=== PATIENT | male | born 1995 | race Hispanic/Latino ===

== ENCOUNTER 2017-09-16 16:26 | Emergency (ER) | payer BC, SELFPAY ==
--- NOTE | 2017-09-16 19:01 | EDPHYS ---
Physician Documentation [facility] Name: Elliot Glynn Jr Age: 21 yrs Sex: Male : 1995 Arrival Date: 09/16/2017 Time: 16:31 Bed 11 Private MD: ED Physician Pepe Tim HPI: 09/16 18:59 This 21 yrs old Male presents to ER via Ambulatory with complaints of Sore snw Throat, Congestion. 18:59 The patient presents with sore throat, dysphagia. The patient describes throat pain as snw raw, scratchy. Onset: The symptoms/episode began/occurred suddenly, 3 day(s) ago, and became worse. Severity of symptoms: At their worst the symptoms were moderate. Associated signs and symptoms: Pertinent positives: cough, flu-like symptoms, Sore throat. The patient has not experienced similar symptoms in the past. The patient has not recently seen a physician. Historical: - Allergies: 16:32 No Known Allergies; hj - Home Meds: 16:32 None [Active]; hj - PMHx: 16:32 None; hj - PSHx: 16:32 None; hj - Immunization history:: Adult Immunizations unknown. - Social history:: Smoking status: Patient/guardian denies using tobacco, Patient/guardian denies using alcohol. ROS: 18:58 Constitutional: Negative for fever, chills, and weight loss, Eyes: Negative for injury, snw pain, redness, and discharge, Neck: Negative for injury, pain, and swelling, Cardiovascular: Negative for chest pain, palpitations, and edema, Respiratory: Negative for shortness of breath, cough, wheezing, and pleuritic chest pain, Abdomen/GI: Negative for abdominal pain, nausea, vomiting, diarrhea, and constipation, Back: Negative for injury and pain, : Negative for injury, bleeding, discharge, and swelling, MS/Extremity: Negative for injury and deformity, Skin: Negative for injury, rash, and discoloration, Neuro: Negative for headache, weakness, numbness, tingling, and seizure. 18:58 Respiratory: Negative for shortness of breath, wheezing, and pleuritic chest pain, positive for cough 18:58 ENT: Positive for sore throat. Exam: 18:57 Constitutional: This is a well developed, well nourished patient who is awake, alert, snw and in no acute distress. Head/Face: Normocephalic, atraumatic. Eyes: Pupils equal round and reactive to light, extra-ocular motions intact. Lids and lashes normal. Conjunctiva and sclera are non-icteric and not injected. Cornea within normal limits. Periorbital areas with no swelling, redness, or edema. Neck: Trachea midline, no thyromegaly or masses palpated, and no cervical lymphadenopathy. Supple, full range of motion without nuchal rigidity, or vertebral point tenderness. No Meningismus. Chest/axilla: Normal chest wall appearance and motion. Nontender with no deformity. No lesions are appreciated. Cardiovascular: Regular rate and rhythm with a normal S1 and S2. No gallops, murmurs, or rubs. Normal PMI, no JVD. No pulse deficits. Respiratory: Lungs have equal breath sounds bilaterally, clear to auscultation and percussion. No rales, rhonchi or wheezes noted. No increased work of breathing, no retractions or nasal flaring. Abdomen/GI: Soft, non-tender, with normal bowel sounds. No distension or tympany. No guarding or rebound. No evidence of tenderness throughout. Back: No spinal tenderness. No costovertebral tenderness. Full range of motion. Skin: Warm, dry with normal turgor. Normal color with no rashes, no lesions, and no evidence of cellulitis. MS/ Extremity: Pulses equal, no cyanosis. Neurovascular intact. Full, normal range of motion. Neuro: Awake and alert, GCS 15, oriented to person, place, time, and situation. Cranial nerves II-XII grossly intact. Motor strength 5/5 in all extremities. Sensory grossly intact. Cerebellar exam normal. Normal gait. 18:57 ENT: External ear(s): are unremarkable, Ear canal(s): are normal, TM's: are normal, Nose: is normal, Mouth: is normal, Posterior pharynx: erythema, that is marked, Voice: is hoarse. Vital Signs: 16:33 BP 138 / 87; Pulse 94; Resp 18; Temp 98.1(TE); Pulse Ox 97% on R/A; Weight 115.67 kg; hj Height 5 ft. 7 in. (170.18 cm); Pain 10/10; 19:15 BP 132 / 85; Pulse 90; Resp 18; Pulse Ox 100% on R/A; hj 16:33 Body Mass Index 39.94 (115.67 kg, 170.18 cm) MDM: 18:17 Patient medically screened. snw 19:08 Data reviewed: vital signs, nurses notes. Data interpreted: Pulse oximetry: on room air snw is 97 %. Interpretation: normal. Counseling: I had a detailed discussion with the patient and/or guardian regarding: the historical points, exam findings, and any diagnostic results supporting the discharge/admit diagnosis, the presence of at least one elevated blood pressure reading (>120/80) during this emergency department visit, lab results, the need for outpatient follow up, for definitive care, to return to the emergency department if symptoms worsen or persist or if there are any questions or concerns that arise at home. Special discussion: I have referred the patient to see his PCP for further evaluation of high blood pressure. Based on the history and exam findings, there is no indication for further emergent testing or inpatient evaluation. I discussed with the patient/guardian the need to see the primary care provider for further evaluation of the symptoms. 09/16 16:35 Order name: Flu 09/16 16:35 Order name: Strep 09/16 17:27 Order name: Group A Streptococcus Rapid Sc; Complete Time: 18:00 EDMS 09/16 17:36 Order name: Influenza Screen (A ; Complete Time: 18:00 EDMS Administered Medications: 18:35 Drug: Decadron 8 mg Route: PO; hj 18:44 Follow up: Response: No adverse reaction hj 18:35 CANCELLED (other intervention used): Augmentin 875 mg PO once snw 18:35 Drug: Zithromax 500 mg Route: PO; hj 18:45 Follow up: Response: No adverse reaction Disposition: 09/16/17 19:00 Discharged to Home. Impression: Acute laryngopharyngitis. - Condition is Stable. - Discharge Instructions: Laryngitis, Pharyngitis. - Prescriptions for Tessalon Perles 100 mg Oral Capsule - take 1 capsule by ORAL route every 8 hours As needed; 15 capsule. Zithromax 500 mg Oral Tablet - take 1 tablet by ORAL route once daily for 5 days; 5 tablet. - Work release form, Medication Reconciliation Form, Thank You Letter, Antibiotic Education, Prescription Opioid Use form. - Follow up: Private Physician; When: 2 - 3 days; Reason: Recheck today's complaints, Continuance of care, Re-evaluation by your physician. Follow up: Emergency Department; When: As needed; Reason: Worsening of condition. Addendum: 10/31/2017 07:01 Co-signature as Attending Physician, Pepe Tim MD. m a2 Signatures: Dispatcher [employer] EDAle Olivares, KENNEDY-C JACKSPOOLER-Csnw Ney Cobos RN RN Pepe Douglas MD MD ma2 Corrections: (The following items were deleted from the chart) 09/16 18:35 18:35 Augmentin 875 mg PO once ordered. snw snw
--- NOTE | 2017-09-16 19:01 | ER ---
Nurse's Notes [facility] Name: Elliot Glynn Jr Age: 21 yrs Sex: Male : 1995 Arrival Date: 09/16/2017 Time: 16:31 Bed 11 Private MD: Diagnosis: Acute laryngopharyngitis Presentation: 09/16 16:31 Presenting complaint: Patient states: cough, runny nose, sore throat started 2 1/2 days hj ago; reports fever and chills;. Transition of care: patient was not received from another setting of care. Onset of symptoms was September 16, 2017. Care prior to arrival: None. 16:31 Method Of Arrival: Ambulatory hj 16:31 Acuity: REMINGTON 4 hj Triage Assessment: 16:32 General: Appears in no apparent distress. uncomfortable, Behavior is calm, cooperative, hj appropriate for age. Pain: Complains of pain in throat. EENT: Reports pain when swallowing. 16:32 Neuro: Level of Consciousness is awake, alert, obeys commands. Cardiovascular: hj Capillary refill < 3 seconds Patient's skin is warm and dry. Respiratory: Airway is patent Respiratory effort is even, unlabored, Respiratory pattern is regular, symmetrical. GI: No signs and/or symptoms were reported involving the gastrointestinal system. : No signs and/or symptoms were reported regarding the genitourinary system. Derm: No signs and/or symptoms reported regarding the dermatologic system. Musculoskeletal: No signs and/or symptoms reported regarding the musculoskeletal system. Historical: - Allergies: 16:32 No Known Allergies; hj - Home Meds: 16:32 None [Active]; hj - PMHx: 16:32 None; hj - PSHx: 16:32 None; hj - Immunization history:: Adult Immunizations unknown. - Social history:: Smoking status: Patient/guardian denies using tobacco, Patient/guardian denies using alcohol. Screenin:17 Abuse screen: Denies threats or abuse. Denies injuries from another. Nutritional hj screening: No deficits noted. Tuberculosis screening: No symptoms or risk factors identified. Fall Risk None identified. Assessment: 16:33 Respiratory: Airway is patent Respiratory effort is even, unlabored, Respiratory hj pattern is regular, symmetrical, Breath sounds are clear. 16:33 EENT: Throat has enlarged tonsils. hj 18:18 Reassessment: Patient and/or family updated on plan of care and expected duration. Pain hj level reassessed. Patient is alert, oriented x 3, equal unlabored respirations, skin warm/dry/pink. awaiting POC:. Vital Signs: 16:33 BP 138 / 87; Pulse 94; Resp 18; Temp 98.1(TE); Pulse Ox 97% on R/A; Weight 115.67 kg; hj Height 5 ft. 7 in. (170.18 cm); Pain 10/10; 19:15 BP 132 / 85; Pulse 90; Resp 18; Pulse Ox 100% on R/A; hj 16:33 Body Mass Index 39.94 (115.67 kg, 170.18 cm) hj ED Course: 16:31 Patient arrived in ED. mr 16:32 Triage completed. hj 16:33 Arm band placed on left wrist. hj 18:00 Ale Madrid FNP-C is PHCP. snw 18:00 Pepe Tim MD is Attending Physician. snw 18:09 Ney Cobos, GUERO is Primary Nurse. hj 18:17 Patient has correct armband on for positive identification. Bed in low position. Call hj light in reach. 19:14 No provider procedures requiring assistance completed. Patient did not have IV access hj during this emergency room visit. Administered Medications: 18:35 Drug: Decadron 8 mg Route: PO; hj 18:44 Follow up: Response: No adverse reaction hj 18:35 CANCELLED (other intervention used): Augmentin 875 mg PO once snw 18:35 Drug: Zithromax 500 mg Route: PO; hj 18:45 Follow up: Response: No adverse reaction hj Outcome: 19:00 Discharge ordered by . snw 19:15 Discharged to home ambulatory. hj 19:15 Condition: stable 19:15 Discharge instructions given to patient, Instructed on discharge instructions, follow up and referral plans. medication usage, Demonstrated understanding of instructions, follow-up care, medications, Prescriptions given X 2. 19:15 Patient left the ED. hj Signatures: Ale Madrid FNP-C MCAT TUTOR-Linh Roy mr Ney Cobos, RN RN hj Corrections: (The following items were deleted from the chart) 16:36 16:33 Pulse 94bpm; Resp 18bpm; Pulse Ox 97% RA; Temp 98.1F Temporal; 115.67 kg; Height hj 5 ft. 7 in.; BMI: 39.9; Pain 04/11; hj
[2017-09-16] MEDS ORDERED: DEXAMETHASONE 4 MG TAB ONE (19:02)
[2017-09-16] MEDS ORDERED: AZITHROMYCIN 250 MG TAB ONE (19:02)
== END 2017-09-16 19:15 | disposition home or self-care (01) ==
LOC: ER 16:26
DX: J06.0 Acute laryngopharyngitis (principal)
CPT/HCPCS: 87070; 87081; 87804; 99283

== ENCOUNTER 2018-07-15 20:27 | Emergency (ER) | payer SELFPAY ==
--- NOTE | 2018-07-15 21:43 | RAD REPORT ---
EXAM DESCRIPTION: RAD - Chest Pa And Lat (2 Views) - 07/15/2018 9:37 pm CLINICAL HISTORY: COUGH Chest pain. COMPARISON: No comparisons FINDINGS: The lungs are clear. The heart is normal in size. No displaced fractures. IMPRESSION: No acute or concerning finding suspected.
--- NOTE | 2018-07-15 22:50 | EDPHYS ---
Physician Documentation [facility] Name: Elliot Glynn Jr Age: 22 yrs Sex: Male : 1995 Arrival Date: 07/15/2018 Time: 20:29 Bed 16 Private MD: ED Physician Panchito Robledo HPI: 07/15 22:46 This 22 yrs old Male presents to ER via Ambulatory with complaints of snw Productive Cough, Painful Cough. 22:46 The patient or guardian reports cough, described as moderate. Onset: The snw symptoms/episode began/occurred 3 week(s) ago, and became persistent. Severity of symptoms: At their worst the symptoms were moderate. Associated signs and symptoms: Pertinent positives: smokes/vapes, lives in apt with Brother who also smokes, Pertinent negatives: chest pain, fever, nausea, vomiting, weight loss, night sweats, recent travel.. The patient has experienced a previous episode. It is unknown whether or not the patient has recently seen a physician. Historical: - Allergies: 21:04 No Known Allergies; aj1 - Home Meds: 21:04 None [Active]; aj1 - PMHx: 21:04 None; aj1 - PSHx: 21:04 None; aj1 - Immunization history:: Flu vaccine is not up to date. - Social history:: Smoking status: Patient uses tobacco products, denies chronic smoking, but will smoke occasionally. - Ebola Screening: : Patient denies travel to an Ebola-affected area in the 21 days before illness onset. ROS: 22:45 Constitutional: Negative for fever, chills, and weight loss, Eyes: Negative for injury, snw pain, redness, and discharge, ENT: Negative for injury, pain, and discharge, Neck: Negative for injury, pain, and swelling, Cardiovascular: Negative for chest pain, palpitations, and edema, Abdomen/GI: Negative for abdominal pain, nausea, vomiting, diarrhea, and constipation, Back: Negative for injury and pain, : Negative for injury, bleeding, discharge, and swelling, MS/Extremity: Negative for injury and deformity, Skin: Negative for injury, rash, and discoloration, Neuro: Negative for headache, weakness, numbness, tingling, and seizure. 22:45 Respiratory: Positive for cough, with no reported sputum. Exam: 22:45 Constitutional: This is a well developed, well nourished patient who is awake, alert, snw and in no acute distress. Head/Face: Normocephalic, atraumatic. Eyes: Pupils equal round and reactive to light, extra-ocular motions intact. Lids and lashes normal. Conjunctiva and sclera are non-icteric and not injected. Cornea within normal limits. Periorbital areas with no swelling, redness, or edema. Neck: Trachea midline, no thyromegaly or masses palpated, and no cervical lymphadenopathy. Supple, full range of motion without nuchal rigidity, or vertebral point tenderness. No Meningismus. Chest/axilla: Normal chest wall appearance and motion. Nontender with no deformity. No lesions are appreciated. Cardiovascular: Regular rate and rhythm with a normal S1 and S2. No gallops, murmurs, or rubs. Normal PMI, no JVD. No pulse deficits. Abdomen/GI: Soft, non-tender, with normal bowel sounds. No distension or tympany. No guarding or rebound. No evidence of tenderness throughout. Back: No spinal tenderness. No costovertebral tenderness. Full range of motion. Skin: Warm, dry with normal turgor. Normal color with no rashes, no lesions, and no evidence of cellulitis. MS/ Extremity: Pulses equal, no cyanosis. Neurovascular intact. Full, normal range of motion. Neuro: Awake and alert, GCS 15, oriented to person, place, time, and situation. Cranial nerves II-XII grossly intact. Motor strength 5/5 in all extremities. Sensory grossly intact. Cerebellar exam normal. Normal gait. 22:45 ENT: TM's: erythema, that is mild, bilaterally, Nose: is normal, Mouth: is normal, Posterior pharynx: erythema, that is moderate, Voice: is normal. 22:45 Respiratory: the patient does not display signs of respiratory distress, Respirations: normal, Breath sounds: bronchial sounds, bronchitic cough. Vital Signs: 21:04 BP 133 / 89; Pulse 92; Resp 20; Temp 97.8; Pulse Ox 99% on R/A; Weight 124.74 kg (R); aj1 Height 5 ft. 7 in. (170.18 cm) (R); Pain 7/10; 23:13 BP 126 / 83; Pulse 89; Resp 18; Pulse Ox 99% on R/A; Pain 0/10; aa1 21:04 Body Mass Index 43.07 (124.74 kg, 170.18 cm) aj1 MDM: 22:23 Patient medically screened. snw 22:50 Data reviewed: vital signs, nurses notes. Data interpreted: Pulse oximetry: on room air snw is 99 %. Interpretation: normal. Counseling: I had a detailed discussion with the patient and/or guardian regarding: the historical points, exam findings, and any diagnostic results supporting the discharge/admit diagnosis, radiology results, to return to the emergency department if symptoms worsen or persist or if there are any questions or concerns that arise at home, smoking cessation. Special discussion: I have referred the patient to see his PCP for further evaluation of high blood pressure. Based on the history and exam findings, there is no indication for further emergent testing or inpatient evaluation. I discussed with the patient/guardian the need to see the primary care provider for further evaluation of the symptoms. 07/15 20:37 Order name: Chest Pa And Lat (2 Views) XRAY; Complete Time: 21:44 snw Administered Medications: 22:55 Drug: predniSONE 40 mg Route: PO; aa1 23:13 Follow up: Response: No adverse reaction; Medication administered at discharge. aa1 22:55 Drug: Pepcid 20 mg Route: PO; aa1 23:13 Follow up: Response: No adverse reaction; Medication administered at discharge. aa1 23:13 Follow up: Response: No adverse reaction; Medication administered at discharge. aa1 22:55 Drug: Albuterol 2.5 mg Route: Inhalation; aa1 Disposition: 07/16 01:26 Co-signature as Attending Physician, Panchito Robledo MD. rn Disposition: 07/15/18 22:49 Discharged to Home. Impression: Bronchitis, not specified as acute or chronic. - Condition is Stable. - Discharge Instructions: Acute Bronchitis, Adult, Hypertension, How to Use an Inhaler, Cool Mist Vaporizer. - Prescriptions for Tessalon Perles 100 mg Oral Capsule - take 1 capsule by ORAL route every 8 hours As needed; 15 capsule. Prednisone 20 mg Oral Tablet - take 2 tablet by ORAL route once daily for 5 days; 10 tablet. Albuterol Sulfate 90 mcg/actuation - inhale 1-2 puff by INHALATION route every 4-6 hours; 1 Inhaler. - Work release form, Medication Reconciliation Form, Thank You Letter, Antibiotic Education, Prescription Opioid Use form. - Follow up: Private Physician; When: 2 - 3 days; Reason: Recheck today's complaints, Continuance of care, Re-evaluation by your physician. Follow up: Emergency Department; When: As needed; Reason: Worsening of condition. Signatures: Dispatcher [employer] EDMS Irina Colindres RN RN aj1 Sarah Lake RN RN aa1 Ale Madrid, OTOLARYNGOLOGY TEACHER-C OTOLARYNGOLOGY TEACHER-Csnw Panchito Robledo MD MD rn integrity: (The following items were deleted from the chart) 07/15 23:14 22:49 07/15/2018 22:49 Discharged to Home. Impression: Bronchitis, not specified as aa1 acute or chronic. Condition is Stable. Forms are Medication Reconciliation Form, Thank You Letter, Antibiotic Education, Prescription Opioid Use. Follow up: Private Physician; When: 2 - 3 days; Reason: Recheck today's complaints, Continuance of care, Re-evaluation by your physician. Follow up: Emergency Department; When: As needed; Reason: Worsening of condition. snw
--- NOTE | 2018-07-15 22:50 | ER ---
Nurse's Notes [facility] Name: Elliot Glynn Jr Age: 22 yrs Sex: Male : 1995 Arrival Date: 07/15/2018 Time: 20:29 Bed 16 Private MD: Diagnosis: Bronchitis, not specified as acute or chronic Presentation: 07/15 21:01 Presenting complaint: Patient states: He has been having "coughing attacks" for the aj1 past few months. Reports shortness of breath and light headedness when he has a coughing fit. Denies fever. Transition of care: patient was not received from another setting of care. Onset of symptoms was 2018. Risk Assessment: Do you want to hurt yourself or someone else? Patient reports no desire to harm self or others. Initial Sepsis Screen: Does the patient meet any 2 criteria? HR > 90 bpm. No. Patient's initial sepsis screen is negative. Does the patient have a suspected source of infection? Yes: Productive cough/pneumonia. Care prior to arrival: None. 21:01 Method Of Arrival: Ambulatory [facility] 21:01 Acuity: REMINGTON 4 aj1 Triage Assessment: 21:04 General: Appears in no apparent distress. comfortable, Behavior is calm, cooperative, aj1 appropriate for age. Pain: Complains of pain in left aspect of posterior pharynx and right aspect of posterior pharynx Pain currently is 7 out of 10 on a pain scale. Neuro: Level of Consciousness is awake, alert, obeys commands. Cardiovascular: Patient's skin is warm and dry. Respiratory: Reports shortness of breath after a coughing fit cough that is productive, Airway is patent Respiratory effort is even, unlabored, Respiratory pattern is regular, symmetrical, Breath sounds are clear bilaterally. Onset: The symptoms/episode began/occurred months ago, the patient reports symptoms have resolved. Historical: - Allergies: 21:04 No Known Allergies; aj1 - Home Meds: 21:04 None [Active]; aj1 - PMHx: 21:04 None; aj1 - PSHx: 21:04 None; aj1 - Immunization history:: Flu vaccine is not up to date. - Social history:: Smoking status: Patient uses tobacco products, denies chronic smoking, but will smoke occasionally. - Ebola Screening: : Patient denies travel to an Ebola-affected area in the 21 days before illness onset. Screenin:40 Abuse screen: Denies threats or abuse. Denies injuries from another. Nutritional aa1 screening: No deficits noted. Tuberculosis screening: No symptoms or risk factors identified. Fall Risk None identified. Assessment: 22:40 General: Appears in no apparent distress. comfortable, Behavior is calm, cooperative, aa1 appropriate for age. Pain: Denies pain. Neuro: Level of Consciousness is awake, alert, obeys commands, Oriented to person, place, time, situation, Moves all extremities. Full function Speech is normal. Cardiovascular: Heart tones S1 S2 present Rhythm is regular. Respiratory: Reports cough that is non-productive, Airway is patent Respiratory effort is even, unlabored, Respiratory pattern is regular, symmetrical, Breath sounds are clear bilaterally. GI: No signs and/or symptoms were reported involving the gastrointestinal system. : No signs and/or symptoms were reported regarding the genitourinary system. EENT: No signs and/or symptoms were reported regarding the EENT system. Derm: Skin is intact, is healthy with good turgor, Skin is pink, warm \\T\\ dry. Musculoskeletal: Circulation, motion, and sensation intact. Capillary refill < 3 seconds. 23:13 Reassessment: Patient appears in no apparent distress at this time. Patient is alert, aa1 oriented x 3, equal unlabored respirations, skin warm/dry/pink. Discussed d/c \\T\\ f/u instructions with pt; denies questions or concerns at this time. Vital Signs: 21:04 BP 133 / 89; Pulse 92; Resp 20; Temp 97.8; Pulse Ox 99% on R/A; Weight 124.74 kg (R); aj1 Height 5 ft. 7 in. (170.18 cm) (R); Pain 7/10; 23:13 BP 126 / 83; Pulse 89; Resp 18; Pulse Ox 99% on R/A; Pain 0/10; aa1 21:04 Body Mass Index 43.07 (124.74 kg, 170.18 cm) aj1 ED Course: 20:29 Patient arrived in ED. es 21:04 Triage completed. aj1 21:04 Arm band placed on Patient placed in waiting room, Patient notified of wait time. aj1 21:36 Ale Madrid FNP-C [facility]. snw 21:36 Panchito Robledo MD is Attending Physician. snw 21:37 Chest Pa And Lat (2 Views) XRAY In Process Unspecified. EDMS 22:40 Patient has correct armband on for positive identification. Bed in low position. Call aa1 light in reach. Pulse ox on. NIBP on. 22:50 Sarah Lake, RN is Primary Nurse. aa1 23:13 No provider procedures requiring assistance completed. Patient did not have IV access aa1 during this emergency room visit. Administered Medications: 22:55 Drug: predniSONE 40 mg Route: PO; aa1 23:13 Follow up: Response: No adverse reaction; Medication administered at discharge. aa1 22:55 Drug: Pepcid 20 mg Route: PO; aa1 23:13 Follow up: Response: No adverse reaction; Medication administered at discharge. aa1 23:13 Follow up: Response: No adverse reaction; Medication administered at discharge. aa1 22:55 Drug: Albuterol 2.5 mg Route: Inhalation; aa1 Outcome: 22:49 Discharge ordered by MD. snw 23:13 Discharged to home ambulatory, with significant other. aa1 23:13 Condition: good 23:13 Discharge instructions given to patient, significant other, Instructed on discharge instructions, follow up and referral plans. medication usage, Demonstrated understanding of instructions, follow-up care, medications, Prescriptions given X 3. 23:14 Patient left the ED. aa1 Signatures: Dispatcher [employer] Irina Roper, RN RN aj1 Sarah Lake, RN RN aa1 Ale Madrid, SUPERVISOR FILM PROCESSING-C SUPERVISOR FILM PROCESSING-Csnw Fanta Edwards
[2018-07-15] MEDS ORDERED: predniSONE 20 MG TAB ONE (23:01)
[2018-07-15] MEDS ORDERED: ALBUTEROL 2.5 MG/3 ML NEB SOL ONE (23:01)
[2018-07-15] MEDS ORDERED: FAMOTIDINE 20 MG TAB ONE (23:02)
== END 2018-07-15 23:14 | disposition home or self-care (01) ==
LOC: ER 20:27
DX: J40 Bronchitis, not specified as acute or chronic (principal); Z72.0 Tobacco use
CPT/HCPCS: 71046; 99284; J7512

== ENCOUNTER 2021-12-06 11:27 | Emergency (ER) | payer SELFPAY ==
--- NOTE | 2021-12-06 12:33 | RAD REPORT ---
EXAM DESCRIPTION: RAD - Elbow Right 3 View - 12/06/2021 12:13 pm CLINICAL HISTORY: PAIN COMPARISON: No comparisons FINDINGS: No bone or joint abnormality is detected.
--- NOTE | 2021-12-06 13:26 | EDPHYS ---
Physician Documentation [facility] Name: Elliot Glynn Jr Age: 26 yrs Sex: Male : 1995 Arrival Date: 12/06/2021 Time: 11:34 Bed 11 Private MD: ED Physician Panchito Robledo HPI: 12/06 13:05 This 26 yrs old Male presents to ER via Ambulatory with complaints of Arm Pain.cp 13:05 The patient or guardian complains of pain, that is acute. The complaints affect the cp right elbow. Context: resulted from weight lifting several days ago. 13:05 Onset: The symptoms/episode began/occurred gradually, and became worse this morning. cp 13:05 Modifying factors: the symptoms are aggravated by flexing and extending right elbow. cp Associated signs and symptoms: Pertinent positives: radiating pain up arm, Pertinent negatives: deformity, numbness, warmth, weakness. Severity of symptoms: in the emergency department the symptoms are unchanged, despite home interventions. Historical: - Allergies: 12:29 No Known Allergies; iw - Home Meds: 12:29 None [Active]; iw - PMHx: 12:29 None; iw - PSHx: 12:29 None; iw - Immunization history:: Adult Immunizations up to date. - Social history:: Smoking status: Reported history of juuling and/or vaping. ROS: 13:10 MS/extremity: Positive for pain, tenderness, of the right elbow, Negative for injury or cp acute deformity, decreased range of motion, paresthesias. 13:10 Constitutional: Negative for fever. cp 13:10 Respiratory: Negative for cough, shortness of breath, wheezing. 13:10 Abdomen/GI: Negative for abdominal pain, nausea, vomiting, and diarrhea. 13:10 Skin: Negative for cellulitis, rash. 13:10 All other systems are negative. Exam: 13:15 Constitutional: The patient appears in no acute distress, alert, awake, cp non-diaphoretic, non-toxic, well developed, well nourished. 13:15 Head/Face: Normocephalic, atraumatic. cp 13:15 Neck: C-spine: vertebral tenderness, is not appreciated, crepitus, is not appreciated, ROM/movement: pain, is not appreciated, limited range of motion, is not appreciated. 13:15 Chest/axilla: Inspection: normal. 13:15 Cardiovascular: Rate: normal. 13:15 Respiratory: the patient does not display signs of respiratory distress, Respirations: normal, no use of accessory muscles, no retractions. 13:15 Musculoskeletal/extremity: Extremities: grossly normal except: noted in the right elbow: pain, tenderness, ROM: limited active range of motion due to pain, in the right elbow, Pulses: noted to be 2+ in the right radial artery, Perfusion: the extremity is normally perfused throughout, the right arm Sensation intact. overlying skin warm, dry, intact. Vital Signs: 12:28 BP 128 / 71; Pulse 88; Resp 20; Temp 96.7; Pulse Ox 98% ; Weight 131.54 kg; Height 5 iw ft. 8 in. (172.72 cm); Pain 5/10; 12:28 Body Mass Index 44.09 (131.54 kg, 172.72 cm) iw MDM: 13:01 Patient medically screened. cp 13:25 Data reviewed: vital signs, nurses notes, radiologic studies, plain films, and as a cp result, I will discharge patient. 12/06 11:48 Order name: XRAY Elbow RIGHT 3 view; Complete Time: 13:24 iw 12/06 13:24 Interpretation: Report reviewed. cp 12/06 13:24 Order name: Sling cp Administered Medications: 12/07 09:24 Not Given (Patient Refused): Ibuprofen 800 mg PO once iw Disposition Summary: 12/06/21 13:25 Discharge Ordered Location: Home cp Problem: new cp Symptoms: have improved cp Condition: Stable cp Diagnosis - Pain in right elbow cp Followup: cp - With: Toby Medina MD - When: 1 week - Reason: pain continues Discharge Instructions: - Discharge Summary Sheet cp - RICE Therapy for Routine Care of Injuries cp - Elbow Sprain cp Forms: - Medication Reconciliation Form cp - Work release form cp - Thank You Letter cp - Antibiotic Education cp - Prescription Opioid Use cp Prescriptions: - Diclofenac Sodium 75 mg Oral Tablet Sustained Release - take 1 tablet by ORAL route 2 times per day; 30 tablet; Refills: 0, Product cp Selection Permitted Addendum: 18:26 Co-signature as Attending Physician, Panchito Robledo MD. r n Signatures: Dispatcher [employer] EDMS Declan, Thelma, RN Panchito Chen MD MD rn Page, Corey, FARHAT PA cp Corrections: (The following items were deleted from the chart) 12:42 06/06 13:05 Context: resulted from weight lifting. cp cp
--- NOTE | 2021-12-06 13:26 | ER ---
Nurse's Notes [facility] Name: Elliot Glynn Jr Age: 26 yrs Sex: Male : 1995 Arrival Date: 12/06/2021 Time: 11:34 Bed 11 Private MD: Diagnosis: Pain in right elbow Presentation: 12/06 11:55 Chief complaint: Patient states: right elbow pain after lifting weights. Coronavirus iw screen: At this time, the client does not indicate any symptoms associated with coronavirus-19. Ebola Screen: Patient negative for fever greater than or equal to 101.5 degrees Fahrenheit, and additional compatible Ebola Virus Disease symptoms Patient denies exposure to infectious person. Patient denies travel to an Ebola-affected area in the 21 days before illness onset. No symptoms or risks identified at this time. Initial Sepsis Screen: Does the patient meet any 2 criteria? No. Patient's initial sepsis screen is negative. Does the patient have a suspected source of infection? No. Patient's initial sepsis screen is negative. Risk Assessment: Do you want to hurt yourself or someone else? Patient reports no desire to harm self or others. Onset of symptoms was December 06, 2021. 11:55 Method Of Arrival: Ambulatory iw 11:55 Acuity: REMINGTON 4 iw Triage Assessment: 12:29 General: Appears in no apparent distress. comfortable, Behavior is cooperative. Pain: iw Complains of pain in right antecubital area and right elbow. Neuro: Level of Consciousness is awake, alert, obeys commands, Oriented to person, place, time, situation, Moves all extremities. Speech is normal. Cardiovascular: Capillary refill < 3 seconds Patient's skin is warm and dry. Respiratory: Airway is patent Respiratory effort is even, unlabored, Respiratory pattern is regular, symmetrical. Musculoskeletal: Circulation, motion, and sensation intact. Capillary refill < 3 seconds. Historical: - Allergies: 12:29 No Known Allergies; iw - Home Meds: 12:29 None [Active]; iw - PMHx: 12:29 None; iw - PSHx: 12:29 None; iw - Immunization history:: Adult Immunizations up to date. - Social history:: Smoking status: Reported history of juuling and/or vaping. Screenin:30 Abuse screen: Denies threats or abuse. Denies injuries from another. Nutritional iw screening: No deficits noted. Tuberculosis screening: No symptoms or risk factors identified. Fall Risk None identified. Assessment: 12:30 Reassessment: Patient appears in no apparent distress at this time. No changes from iw previously documented assessment. Patient and/or family updated on plan of care and expected duration. Pain level reassessed. Patient is alert, oriented x 3, equal unlabored respirations, skin warm/dry/pink. Vital Signs: 12:28 BP 128 / 71; Pulse 88; Resp 20; Temp 96.7; Pulse Ox 98% ; Weight 131.54 kg; Height 5 iw ft. 8 in. (172.72 cm); Pain 5/10; 12:28 Body Mass Index 44.09 (131.54 kg, 172.72 cm) iw ED Course: 11:34 Patient arrived in ED. am2 11:42 Sigifredo Tony PA is PHCP. cp 11:42 Panchito Robledo MD is Attending Physician. cp 11:56 Triage completed. iw 11:56 Arm band placed on. iw 12:01 PHCP role handed off by Sigifredo Tony PA en 12:01 Tere Nur PA is PHCP. en 12:10 Sigifredo Tony PA is PHCP. rn 12:10 XRAY Elbow RIGHT 3 view In Process Unspecified. EDMS 12:12 PHCP role handed off by Sigifredo Tony PA en 12:12 Tere Nur PA is PHCP. en 12:13 Sigifredo Tony PA is PHCP. cp 12:30 Patient has correct armband on for positive identification. iw 13:16 Thelma Manriquez RN is Primary Nurse. iw 13:24 Toby Medina MD is Referral Physician. cp Administered Medications: 06 09:24 Not Given (Patient Refused): Ibuprofen 800 mg PO once iw Medication: 12/06 12:30 VIS not applicable for this client. iw Outcome: 13:25 Discharge ordered by . cp 13:55 Patient left the ED. iw Signatures: Dispatcher [employer] EDMS Thelma Manriquez RN RN iw Panchito Robledo MD MD rn Page, Corey, PA PA cp Claudette Hale am2 Tere Nur PA PA en
[2021-12-06 14:03] VITALS: BP 128/71; TEMP 96.7; O2SAT 98
== END 2021-12-06 13:55 | disposition home or self-care (01) ==
LOC: ER 11:27
DX: M79.601 Pain in right arm (principal)
CPT/HCPCS: 99282

== ENCOUNTER 2022-12-01 08:23 | Emergency (ER) | payer SELFPAY ==
--- OUTSIDE RECORDS SUMMARY | 2022-12-01 08:27 | XMS REPORT | Continuity of Care Document ---
:1995 Author Organization [facility] t Address [address] [place] [address] Care Team Providers Name Role Phone Unavailable Unavailable Unavailable Problems This patient has no known problems. Allergies, Adverse Reactions, Alerts This patient has no known allergies or adverse reactions. Medications This patient has no known medications. Procedures This patient has no known procedures. Results This patient has no known results.
[2022-12-01] MEDS ORDERED: LIDOCAINE 1% MPF 30 ML VIAL ONE (09:08)
--- NOTE | 2022-12-01 09:26 | EDPHYS ---
Physician Documentation [facility] Name: Elliot Glynn Jr Age: 27 yrs Sex: Male : 1995 Arrival Date: 12/01/2022 Time: 08:23 Bed 4 Private MD: ED Physician Panchito Robledo HPI: 12/01 09:24 This 27 yrs old Male presents to ER via Ambulatory with complaints of Cyst. snw 09:24 The patient presents with an abscess of the coccyx. Description: localized, draining. snw Onset: The symptoms/episode began/occurred suddenly, and became persistent. Possible cause(s): unknown. Modifying factors: the symptoms are alleviated by remaining still, the symptoms are aggravated by movement, pressure, sitting. Severity of symptoms: At their worst the symptoms were moderate. The patient has experienced similar episodes in the past, multiple times. The patient has not recently seen a physician. Historical: - Allergies: 08:43 No Known Allergies; iw - Home Meds: 08:43 None [Active]; iw - PMHx: :43 None; iw - PSHx: 08:43 None; iw - Immunization history:: Adult Immunizations up to date. - Social history:: Smoking status: Reported history of juuling and/or vaping. ROS: 09:07 Constitutional: Negative for fever, chills, and weight loss, Eyes: Negative for injury, snw pain, redness, and discharge, ENT: Negative for injury, pain, and discharge, Neck: Negative for injury, pain, and swelling, Cardiovascular: Negative for chest pain, palpitations, and edema, Respiratory: Negative for shortness of breath, cough, wheezing, and pleuritic chest pain, Abdomen/GI: Negative for abdominal pain, nausea, vomiting, diarrhea, and constipation, Back: Negative for injury and pain, : Negative for injury, bleeding, discharge, and swelling, MS/Extremity: Negative for injury and deformity, Neuro: Negative for headache, weakness, numbness, tingling, and seizure, Psych: Negative for depression, anxiety, suicide ideation, homicidal ideation, and hallucinations. 09:07 Skin: Positive for abscess, of the coccyx. Exam: 09:06 Constitutional: This is a well developed, well nourished patient who is awake, alert, snw and in no acute distress. Head/Face: Normocephalic, atraumatic. Eyes: Pupils equal round and reactive to light, extra-ocular motions intact. Lids and lashes normal. Conjunctiva and sclera are non-icteric and not injected. Cornea within normal limits. Periorbital areas with no swelling, redness, or edema. ENT: Nares patent. No nasal discharge, no septal abnormalities noted. Tympanic membranes are normal and external auditory canals are clear. Oropharynx with no redness, swelling, or masses, exudates, or evidence of obstruction, uvula midline. Mucous membranes moist. Neck: Trachea midline, no thyromegaly or masses palpated, and no cervical lymphadenopathy. Supple, full range of motion without nuchal rigidity, or vertebral point tenderness. No Meningismus. Chest/axilla: Normal chest wall appearance and motion. Nontender with no deformity. No lesions are appreciated. Cardiovascular: Regular rate and rhythm with a normal S1 and S2. No gallops, murmurs, or rubs. Normal PMI, no JVD. No pulse deficits. Respiratory: Lungs have equal breath sounds bilaterally, clear to auscultation and percussion. No rales, rhonchi or wheezes noted. No increased work of breathing, no retractions or nasal flaring. Abdomen/GI: Soft, non-tender, with normal bowel sounds. No distension or tympany. No guarding or rebound. No evidence of tenderness throughout. Back: No spinal tenderness. No costovertebral tenderness. Full range of motion. MS/ Extremity: Pulses equal, no cyanosis. Neurovascular intact. Full, normal range of motion. Neuro: Awake and alert, GCS 15, oriented to person, place, time, and situation. Cranial nerves II-XII grossly intact. Motor strength 5/5 in all extremities. Sensory grossly intact. Cerebellar exam normal. Normal gait. Psych: Awake, alert, with orientation to person, place and time. Behavior, mood, and affect are within normal limits. 09:06 Skin: abscess, that is moderate sized, of the coccyx, with drainage, with induration. Vital Signs: 08:45 BP 149 / 100; Pulse 102; Resp 18; Temp 98.5; Weight 129.27 kg; Height 5 ft. 7 in. ; iw Pain /10; 09:51 BP 145 / 93; Pulse 97; Resp 16; Pulse Ox 99% ; bp 08:45 Body Mass Index 44.64 (129.27 kg, 170.18 cm) iw 08:45 Pain Scale: Adult iw MDM: 08:44 Patient medically screened. snw 09:06 Differential diagnosis: bacterial infection, pilonidal cyst. Data reviewed: vital snw signs, nurses notes. Counseling: I had a detailed discussion with the patient and/or guardian regarding: the historical points, exam findings, and any diagnostic results supporting the discharge/admit diagnosis, the need for outpatient follow up, for definitive care, a general surgeon, to return to the emergency department if symptoms worsen or persist or if there are any questions or concerns that arise at home. 09:23 Response to treatment: the patient's symptoms have markedly improved after treatment. snw Special discussion: I have referred the patient to see his PCP for further evaluation of high blood pressure. Based on the history and exam findings, there is no indication for further emergent testing or inpatient evaluation. I discussed with the patient/guardian the need to see the general surgeon for further evaluation of the symptoms. 09:25 Differential diagnosis: abscess, pilonidal cyst. snw Administered Medications: 09:26 Drug: Boostrix Tdap IM 0.5 ml Route: IM; Site: left deltoid; bp 09:52 Follow up: Response: No adverse reaction bp 09:27 Drug: Doxycycline PO 100 mg Route: PO; bp 09:52 Follow up: Response: No adverse reaction bp 09:27 Drug: HYDROcodone-acetaminophen PO 5 mg-325 mg 1 tabs Route: PO; bp 09:52 Follow up: Response: No adverse reaction bp 09:27 Drug: Lidocaine Infiltration (1 %) 1 vials Volume: 20 ml; Route: Infiltration; bp Disposition: 17:38 Co-signature as Attending Physician, Panchito Robledo MD I reviewed the patient's care rn provided by the Advanced Practice Provider and agree with the diagnosis and treatment plan. Disposition Summary: 12/01/22 09:26 Discharge Ordered Location: Home snw Condition: Stable snw Diagnosis - Pilonidal cyst and sinus with abscess snw Followup: snw - With: Emergency Department - When: As needed - Reason: Worsening of condition Followup: snw - With: Arturo Mcmanus MD - When: 5 - 6 days - Reason: Recheck today's complaints, Continuance of care Discharge Instructions: - Discharge Summary Sheet snw - Hypertension, Adult snw - Pilonidal Cyst snw - Form - Blood Pressure Record Sheet snw - How to Take Your Blood Pressure snw - Pilonidal Cyst Removal, Care After snw Forms: - Work release form snw - Medication Reconciliation Form snw - Thank You Letter snw - Antibiotic Education snw - Prescription Opioid Use snw Prescriptions: - Doxycycline Hyclate 100 mg Oral Tablet - take 1 tablet by ORAL route every 12 hours; 20 tablet; Refills: 0, Product snw Selection Permitted - Tramadol 50 mg Oral Tablet - take 1 tablet by ORAL route every 8 hours as needed; 12 tablet; Refills: 0, snw Product Selection Permitted Signatures: Ale Suarez FNP-C BUILDING OFFICIAL-Cs[employer] Thelma Manriquez, RN Panchito Chen MD MD rn Peltier, Brian, RN RN bp
--- NOTE | 2022-12-01 09:26 | ER ---
Nurse's Notes [facility] Name: Elliot Glynn Jr Age: 27 yrs Sex: Male : 1995 Arrival Date: 12/01/2022 Time: 08:23 Bed 4 Private MD: Diagnosis: Pilonidal cyst and sinus with abscess Presentation: 12/01 08:37 Chief complaint: Patient states: cyst on tailbone since Monday, has had it before but iw not in over a year. Coronavirus screen: At this time, the client does not indicate any symptoms associated with coronavirus-19. Ebola Screen: Patient negative for fever greater than or equal to 101.5 degrees Fahrenheit, and additional compatible Ebola Virus Disease symptoms Patient denies exposure to infectious person. Patient denies travel to an Ebola-affected area in the 21 days before illness onset. No symptoms or risks identified at this time. Initial Sepsis Screen: Does the patient meet any 2 criteria? No. Patient's initial sepsis screen is negative. Does the patient have a suspected source of infection? No. Patient's initial sepsis screen is negative. Risk Assessment: Do you want to hurt yourself or someone else? Patient reports no desire to harm self or others. 08:37 Method Of Arrival: Ambulatory iw 08:37 Acuity: REMINGTON 3 iw 09:52 Onset of symptoms is unknown. bp Triage Assessment: 08:45 General: Appears uncomfortable, Behavior is appropriate for age. Pain: Complains of bp pain in coccyx. EENT: No deficits noted. Neuro: No deficits noted. Cardiovascular: No deficits noted. Respiratory: No deficits noted. GI: No signs and/or symptoms were reported involving the gastrointestinal system. : No signs and/or symptoms were reported regarding the genitourinary system. Derm: Abscess located on coccyx. Musculoskeletal: No deficits noted. Historical: - Allergies: 08:43 No Known Allergies; iw - Home Meds: 08:43 None [Active]; iw - PMHx: 08:43 None; iw - PSHx: 08:43 None; iw - Immunization history:: Adult Immunizations up to date. - Social history:: Smoking status: Reported history of juuling and/or vaping. Screenin:28 [facility] ED Fall Risk Assessment (Adult) History of falling in the last 3 months, bp including since admission No falls in past 3 months (0 pts). Abuse screen: Denies threats or abuse. Denies injuries from another. Nutritional screening: No deficits noted. Tuberculosis screening: No symptoms or risk factors identified. Assessment: 08:45 General: SEE TRIAGE NOTE. bp 09:51 Reassessment: PT DC HOME. bp Vital Signs: 08:45 BP 149 / 100; Pulse 102; Resp 18; Temp 98.5; Weight 129.27 kg; Height 5 ft. 7 in. ; iw Pain 8/10; 09:51 BP 145 / 93; Pulse 97; Resp 16; Pulse Ox 99% ; bp 08:45 Body Mass Index 44.64 (129.27 kg, 170.18 cm) iw 08:45 Pain Scale: Adult iw ED Course: 08:30 Patient arrived in ED. mr 08:38 Triage completed. iw 08:40 Raphael Dalton, GUERO is Primary Nurse. bp 08:44 Ale Suarez FNP-C is PHCP. snw 08:44 Panchito Robledo MD is Attending Physician. snw 08:45 Ale Suarez FNP-C is PHCP. snw 08:45 Arm band placed on. iw 09:26 Arturo Mcmanus MD is Referral Physician. snw 09:27 Assist provider with I \T\ D: of an abscess on Set up I\T\D tray. Performed by Ale CANO Patient tolerated well. 09:28 Patient has correct armband on for positive identification. Bed in low position. Call bp light in reach. Side rails up X2. 09:51 Patient did not have IV access during this emergency room visit. bp Administered Medications: 09:26 Drug: Boostrix Tdap IM 0.5 ml Route: IM; Site: left deltoid; bp 09:52 Follow up: Response: No adverse reaction bp 09:27 Drug: Doxycycline PO 100 mg Route: PO; bp 09:52 Follow up: Response: No adverse reaction bp 09:27 Drug: HYDROcodone-acetaminophen PO 5 mg-325 mg 1 tabs Route: PO; bp 09:52 Follow up: Response: No adverse reaction bp 09:27 Drug: Lidocaine Infiltration (1 %) 1 vials Volume: 20 ml; Route: Infiltration; bp Medication: 09:51 VIS not applicable for this client. bp Outcome: 09:26 Discharge ordered by MD. camilo 09:51 Discharged to home ambulatory. bp 09:51 Condition: stable 09:51 Discharge instructions given to patient, Instructed on discharge instructions, follow up and referral plans. medication usage, wound care, Demonstrated understanding of instructions, follow-up care, medications, wound care, Prescriptions given X 2. 09:52 Patient left the ED. bp Signatures: Ale Suarez, SISSYC INTERFACE DEVELOPER-Csnw Elda Arguelles mr Thelma Manriquez, RN RN iw Raphael Dalton RN RN bp
[2022-12-01] MEDS ORDERED: TETANUS & DIPHTHERIA TOX,ADULT 0.5 ML VIAL ONE (09:29)
[2022-12-01] MEDS ORDERED: HYDROCODONE/APAP 5/325 MG TAB ONE (09:29)
[2022-12-01] MEDS ORDERED: DOXYCYCLINE 100 MG CAP PO ONE (09:29)
[2022-12-01 09:56] VITALS: TEMP 98.5
[2022-12-01 09:58] VITALS: BP 145/93; O2SAT 99
== END 2022-12-01 09:52 | disposition home or self-care (01) ==
LOC: ER 08:23
DX: L05.01 Pilonidal cyst with abscess (principal)
CPT/HCPCS: 90714; 96372; 99284; J2001